=== PATIENT | female | born 1955 | race Caucasian/White ===

== ENCOUNTER 2016-12-06 11:14 | Emergency (ER) | payer OTHER ==
[~2016-12-06] VITALS: Ht 170.2 cm; Wt 60.3 kg
[2016-12-06 11:18] VITALS: BP 129/72
[2016-12-06 12:15] LABS: PATH.CAST-FLAG NOT PRESENT; SPERM-FLAG NOT PRESENT; SRC-FLAG NOT PRESENT; XTAL-FLAG NOT PRESENT; YLC-FLAG NOT PRESENT
[2016-12-06 12:16] LABS: HCG UR OBC PASS
== END 2016-12-06 14:34 | disposition home or self-care (01) ==
LOC: ED 11:56
DX: N30.90 Cystitis, unspecified without hematuria (principal)
CPT/HCPCS: 76830; 81001; 81025; 87086; 87210; 87491; 87591; 87808; 99285